=== PATIENT | female | born 1955 | race Caucasian/White ===

== ENCOUNTER 2017-10-29 08:44 | Day surgery (SDC) | payer BC ==
[~2017-10-29 08:44] MED LIST: Lactated Ringers 1,000 ML IV SCH; Sodium Chloride 0.9% 10 ML Syringe FLUSH PRN
[2017-10-29] MEDS ORDERED: Propofol 200 MG/20 ML SDV ONE ×2 (09:44→09:50)
--- NOTE | 2017-10-29 09:53 | PCM.HPR ---
H & P Addendum review - H & P Addendum Review Date of Original H & P: 09/29/17 Date Reviewed: 10/29/17 Time Reviewed: 09:45 Patient was Examined: No Changes
--- NOTE | 2017-10-29 10:16 | PCM.OPNOTE ---
- General Post-Op/Procedure Note Date of Surgery/Procedure: 10/29/17 Operative Procedure(s): Colonoscopy Findings: Diverticulosis Pre Op Diagnosis: Screening Post-Op Diagnosis: Same Anesthesia Technique: MAC Primary Surgeon: Triston Hidalgo Complications: None Condition: Good Free Text/Narrative:: Intake & Output 10/28/17 10/29/17 10/29/17 22:59 06:59 14:59 Intake Total 500 Balance 500
--- NOTE | 2017-10-29 15:57 | OR ---
Date of Procedure: 10/29/2017 PREOPERATIVE DIAGNOSIS: Colon screening. POSTOPERATIVE DIAGNOSIS: Diverticulosis. PROCEDURE: Colonoscopy. ANESTHESIA: IV sedation. DESCRIPTION OF PROCEDURE: The patient was brought to the procedure room, where she was placed on her left side and IV sedation administered. Digital rectal exam was performed which was normal. Colonoscope was inserted and advanced to the level of the cecum with some difficulty getting through a tortuous sigmoid colon with diverticula present. Once I got through this area, it was easily passed to the cecum which was confirmed by identifying the appendiceal lumen and the ileocecal valve. Prep was good and surfaces were well visualized. Upon withdrawing the scope, the ascending, transverse, and descending colon had some scattered diverticula throughout. Sigmoid colon had multiple diverticula. The rectum was normal and retroflexion was normal. Air was removed and the scope withdrawn. The patient tolerated the procedure well, returned to recovery in stable condition. Recommend routine colon screening again in 10 years. CARLYN MAURICIO MD /[id number]
== END 2017-10-29 11:37 | disposition home or self-care (01) ==
LOC: LL.SDS 08:44
PROVIDERS: ATTEND Surgery
DX: Z12.11 Encounter for screening for malignant neoplasm of colon (principal); K57.30 Diverticulosis of large intestine without perforation or abscess without bleeding; F41.9 Anxiety disorder, unspecified; F32.9 Major depressive disorder, single episode, unspecified; E66.9 Obesity, unspecified; Z79.82 Long term (current) use of aspirin; Z79.899 Other long term (current) drug therapy
CPT/HCPCS: J2704; J7120